=== PATIENT | female | born 1985 | race Caucasian/White ===

== ENCOUNTER → 2020-09-28 | Outpatient (CLI) | payer OTHER ==
[~2020-09-28] MED LIST: ACET325; Adipex-P37.5 M1 PO; IBUHYD PO; NAPR550 PO; Norco 10-325 T1 EACH PO; OXYACE5T PO; Zovirax800 MG PO
[2020-09-29 16:10] LABS: HPV 16 Negative (Negative); HPV 18 Negative (Negative); HPV OTHER HR TYPES Negative (Negative)
== END ==
LOC: PLD 11:29 → LAB SHORT 11:29
PROVIDERS: Obstetrics & Gynecology
DX: Z12.4 Encounter for screening for malignant neoplasm of cervix (principal); N89.8 Other specified noninflammatory disorders of vagina
CPT/HCPCS: 87070; 87205; 87624; G0123

== ENCOUNTER → 2023-07-15 | Outpatient (CLI) | payer OTHER | END | disposition home or self-care (01) | LOC: LAB 14:45 → LAB SHORT 14:45 | DX: R30.0 Dysuria (principal); R35.0 Frequency of micturition | CPT/HCPCS: 87086 ==

== ENCOUNTER 2023-08-06 07:32 | Day surgery (SDC) | payer OTHER ==
[~2023-08-06] VITALS: Ht 175.3 cm; Wt 103.9 kg
[2023-08-06] MEDS ORDERED: Budeprion Xl300 MG (07:54)
[2023-08-06] MEDS ORDERED: METFORMIN HCL500 M3 PO (07:54)
[2023-08-06] MEDS ORDERED: OXYB5 PO (07:55)
[2023-08-06] MEDS ORDERED: Phentermine HCl30 MG (07:55)
[2023-08-06] MEDS ORDERED: PIOGLITAZONE HC15 MG (07:55)
[2023-08-06] MEDS ORDERED: LARIN 21 1-201 EACH PO (07:57)
--- NOTE | 2023-08-06 08:08 | NUR ---
08/06/23 0808 Noni Dolan BOYFRIENTal ALAS AT BEDSIDE. NO QUESTIONS OR CONCERNS AT THIS TIME
--- NOTE | 2023-08-06 08:39 | NUR ---
08/06/23 0839 Kishor Turcios ROPIVACAINE 0.5% 10 MLS MIXED & VERIFIED W/ EPI 0.05ML (1MG/ML) PER ORDER TO MAKE ROPIVACAINE 0.5% 1:200,000 FOR INJECTION AT OPSITE BY DR LEON.
[2023-08-06 09:36] VITALS: BP 136/97
--- NOTE | 2023-08-06 10:18 | NUR ---
08/06/23 1018 Tony Aleman 5/325 ONE TAB GIVEN AT 1010 FOR PAIN AT 3/10. SHE IS OK WITH DISCHARGE AT 3/10 PAIN LEVEL. TOLERATING FOOD AND FLUIDS PRIOR TO ADMINISTRATION OF ANALGESIA.
== END 2023-08-06 10:26 | disposition home or self-care (01) ==
LOC: ORSCSDS 07:32
PROVIDERS: Obstetrics & Gynecology
PROC: 0UT74ZZ Resection of Bilateral Fallopian Tubes, Percutaneous Endoscopic Approach (ICD-10-PCS; principal; 2023-08-06 08:45)
DX: Z30.2 Encounter for sterilization (principal); E11.9 Type 2 diabetes mellitus without complications; Z79.84 Long term (current) use of oral hypoglycemic drugs; Z79.899 Other long term (current) drug therapy; Z68.33 Body mass index [BMI] 33.0-33.9, adult
CPT/HCPCS: 82947; 88302; A9270; J0171; J1100; J1885; J2250; J2405; J2704; J2795; J3010; J7120

== ENCOUNTER 2025-02-13 07:08 | Day surgery (SDC) | payer OTHER ==
[2025-02-13] VITALS (10 sets, daily range): BP systolic 111–149; BP diastolic 76–99
[~2025-02-13] VITALS: Ht 175.3 cm; Wt 106.8 kg
[~2025-02-13 07:08] MED LIST changes: +ACYC400 PO; +Bentyl20 MG PO; +Budeprion Xl300 MG; +Dexamethasone Sod Phos 10 MG/ML 1ML VIAL ONE; +Diflucan150 MG PO; +Dyazide 37.5-21 EACH PO; +FentaNYL Citrate 50 MCG/ML 5 ML Injection ONE; +HYDPAM25 PO; +Indocyanine Green 25 MG Vial IV ONE; +JOLESSA PO; +Ketorolac Tromethamine 30mg Vial ONE; +LARIN 21 1-201 EACH PO; +LOMAIRA8 MG PO; +Lactated Ringer's 1,000 ML IV SCH; +METFORMIN HCL500 M3 PO; +OXYB5 PO; +Ondansetron HCl 2 MG / ML 2ML Vial ONE; +PIOG15 PO; +PIOGLITAZONE HC15 MG; +PROBIOTIC1 EA14 PO; +Phentermine HCl30 MG PO; +Rocuronium Bromide 10 MG/ML 5ML Injection IV ONE; +TEMA15 PO; +TOPI25 PO; +Tessalon200 MG PO; +propofoL 20 ML IV ONE
[2025-02-13] MEDS ORDERED: Bupivacaine 0.5% HCl 5 MG/ML 30MLVIAL ONE (07:26)
--- NOTE | 2025-02-13 07:41 | NUR ---
History, Chart, Medications and Allergies reviewed before start of procedure. Pre-Op teaching done. Pt verbalizes understanding. Patient confirms NPO status and agrees with scheduled surgery. PT BELONGINGS BAG PLACED UNDER GURNEY. PT UNABLE TO REMOVE EARRING IN R EAR. VAZQUEZ CONSENT SIGNED AND PLACED IN CHART.
--- NOTE | 2025-02-13 07:49 | NUR ---
SURGEON OK'D TO GIVE MEFOXIN, DESPITE CEFPROZIL ALLERGY. SURGEON AND ANES REVIEWED CHART AND AGREED NO EKG IS NEEDED.
[2025-02-13] MEDS ORDERED: CefOXitin Sodium 2,000 MG in NS 50 ML IV SCH (07:50)
[2025-02-13] MEDS ORDERED: Bupivacaine 0.5% Inj 10 ML Vial ONE (08:31)
[2025-02-13] MEDS ORDERED: Sugammadex Sodium 200 MG/2ML SDV (100 MG/ML) ONE (08:56)
[2025-02-13] MEDS ORDERED: FentaNYL Citrate 50 MCG/ML 2 ML Injection IV PRN ×2 (09:20→09:25)
[2025-02-13] MEDS ORDERED: HYDROmorphone HCl/Pf 1MG SYR IV PRN ×2 (09:20)
[2025-02-13] MEDS ORDERED: Ondansetron HCl 2 MG / ML 2ML Vial IV PRN (09:20)
[2025-02-13] MEDS ORDERED: Metoclopramide HCl 5MG / ML 2ML Vial IV PRN (09:20)
[2025-02-13] MEDS ORDERED: HYDROmorphone HCl/Pf 1MG SYR ONE (09:22)
[2025-02-13] MEDS ORDERED: Ondansetron HCl 2 MG / ML 2ML Vial ONE (09:24)
[2025-02-13] MEDS ORDERED: Metoclopramide HCl 5MG / ML 2ML Vial ONE (09:24)
[2025-02-13] MEDS ORDERED: Atropine Sulfate 0.1 MG/ML 10ML SYR IV PRN (09:25)
[2025-02-13] MEDS ORDERED: OxyCODONE 5 mg/Acetamin 325 mg TABLET PO PRN (09:25)
[2025-02-13] MEDS ORDERED: Albuterol 2.5 MG/3 ML VIAL INH PRN (09:25)
[2025-02-13] MEDS ORDERED: Labetalol HCL 5 MG/ML 4ML Injection (Single Dose) IV PRN (09:25)
--- NOTE | 2025-02-13 09:47 | NUR ---
PT DENIES PAIN ON ARRIVAL TO STEP, ABD INCISION WITH DERMABOND, CLEAN DRY AND INTACT. NO ACUTE DISTRESS. PT GIVEN WATER TO DRINK AND GRAM CRACKERS.
--- NOTE | 2025-02-13 10:29 | NUR ---
Discharge instructions reviewed with patient. Patient verbalizes understanding. Copy given to patient to take home. Patient States Post-Procedure ride home has been arranged. Discharged via wheelchair to private car for ride home.
== END 2025-02-13 10:30 | disposition home or self-care (01) ==
LOC: ORSCMMR 07:08 → ORD 08:00 → ORSCMMR 10:30
PROVIDERS: Surgery
PROC: 3E0T3BZ Introduction of Anesthetic Agent into Peripheral Nerves and Plexi, Percutaneous Approach (ICD-10-PCS; principal; 2025-02-13 08:00)
PROC: 0FT44ZZ Resection of Gallbladder, Percutaneous Endoscopic Approach (ICD-10-PCS; principal; 2025-02-13 08:00)
DX: K80.10 Calculus of gallbladder with chronic cholecystitis without obstruction (principal); G47.33 Obstructive sleep apnea (adult) (pediatric); R32 Unspecified urinary incontinence; E66.09 Other obesity due to excess calories; E11.9 Type 2 diabetes mellitus without complications; Z79.84 Long term (current) use of oral hypoglycemic drugs; Z79.899 Other long term (current) drug therapy
CPT/HCPCS: 88304; J0694; J1100; J1171; J1885; J2405; J2704; J2765; J3010; J7120